=== PATIENT | female | born 1990 | race African-American/Black ===

== ENCOUNTER 2017-04-18 13:45 | Emergency (ER) | payer MEDICAID ==
[~2017-04-18 13:45] MED LIST: ADVIL200 MG ORAL; ATARAX25 MG ORAL; DOXYCYCLINE MO100 MG ORAL; HYDROCORTISO28.35 G1 TOPIC; METRONIDAZOLE500 MG ORAL; NKM; PERMETHRIN60 GM TOPIC
[2017-04-18] MEDS ORDERED: ALBUTEROL SULF8.5 GM INH (14:54)
[2017-04-18] MEDS ORDERED: PROMETHAZINE-C118 M1 ORAL (14:54)
[2017-04-18] MEDS ORDERED: PREDNISONE20 MG ORAL (14:54)
== END 2017-04-18 14:00 | disposition left against medical advice (07) ==
LOC: EMR 14:00
DX: Z53.21 Procedure and treatment not carried out due to patient leaving prior to being seen by health care provider (principal)

== ENCOUNTER 2017-04-18 14:15 | Emergency (ER) | payer MEDICAID ==
[~2017-04-18] VITALS: Ht 162.6 cm; Wt 72.6 kg
[2017-04-18 14:31] VITALS: BP 141/84
[2017-04-18] MEDS ORDERED: PREDNISONE20 MG ORAL (14:54)
[2017-04-18] MEDS ORDERED: PROMETHAZINE-C118 M1 ORAL (14:54)
[2017-04-18] MEDS ORDERED: ALBUTEROL SULF8.5 GM INH (14:54)
[2017-04-18 15:01] VITALS: BP 141/84
--- NOTE | 2017-04-22 08:44 | Emergency Room Report ---
History of Present Illness General Chief Complaint: General Complaint Source: Patient Present Illness HPI 27-year-old female presents to ED for evaluation. Patient is here stating that there is mold in her apartment and she's been having a cough for the last several months. Cough is dry. Denies chest pain or shortness of breath. Denies wheezing. Denies fevers or chills. Denies sick contacts or recent travel. No other aggravating relieving factors. Denies any other associated symptoms Allergies: Coded Allergies: IBUPROFEN (Verified Allergy, Intermediate, 08/29/14) Patient History Past Medical History: asthma, psych hx Past Surgical History: none Pertinent Family History: none Social History: Denies: alcohol use, drug use, smoking Last Menstrual Period: 2 weeks Now: No Immunizations: UTD Reviewed Nursing Documentation: PMH: Agreed, PSxH: Agreed Nursing Documentation-PMH Past Medical History: No History, Except For Hx Asthma: Yes History Of Psychiatric Problem: Yes - depression Hx Neurological Problems: No - Metacarpal surgery in 2013(due to fracture) Review of Systems All Other Systems: negative except mentioned in HPI Physical Exam Vital Signs Date Time Temp Pulse Resp B/P Pulse Ox O2 Delivery O2 Flow Rate FiO2 04/18/17 14:18 97.7 101 20 138/87 98 Room Air Sp02 EP Interpretation: reviewed General Appearance: no apparent distress, alert, GCS 15, non-toxic Head: normocephalic Eyes: bilateral eye PERRL, bilateral eye normal inspection ENT: hearing grossly normal, normal pharynx, no angioedema, normal voice Neck: normal inspection Respiratory: chest non-tender, lungs clear, normal breath sounds, speaking full sentences Cardiovascular #1: regular rate, rhythm, no edema Gastrointestinal: normal bowel sounds, non tender, soft, non-distended, no guarding, no rebound Rectal: deferred Genitourinary: no CVA tenderness Musculoskeletal: back normal Neurologic: alert, oriented x3, responsive, motor strength/tone normal, sensory intact, speech normal Psychiatric: anxious Skin: normal inspection Lymphatic: normal inspection Medical Decision Making Diagnostic Impression: Primary Impression: Bronchitis ER Course Hospital Course 27-year-old female presents to ED complaining of persistent cough. possible mold exposure at house Differential diagnoses include: URI, pharyngitis, otitis media, asthma Clinical course Patient placed on stretcher. After initial history, physical exam reveals a female in no acute distress. Bilateral TM unremarkable. No pharyngeal erythema. No tonsillar exudates. No lymphadenopathy. lungs clear. abdomen soft. I reviewed EMR patient has been here multiple times for vague complaints. Patient does have history of anxiety and some psychiatric component to her visits. On a recent visit patient screamed at the physician stating that "nothing was done". At this time patient remains calm. Understanding her diagnosis. Understands no emergent therapy is required at this time Diagnosis - bronchitis Stable and discharged home with Rx albuterol, cough syrup, prednisone. Instructed to followup with PMD. Return to ED if symptoms recur or worsen Chest X-Ray Diagnostic Results Chest X-Ray Ordered: No Last Vital Signs Date Time Temp Pulse Resp B/P Pulse Ox O2 Delivery O2 Flow Rate FiO2 04/18/17 15:01 97.6 98 19 141/84 99 Room Air Status: improved Disposition: HOME, SELF-CARE Condition: Stable Scripts Albuterol Sulfate* (ALBUTEROL SULFATE MDI*) 8.5 Gm Hfa.aer.ad 2 PUFF INH Q4H Y for cough/wheezing, #1 EA 0 Refills Prov: SCOTT TIRADO M.D. 04/18/17 Prednisone* (PREDNISONE*) 20 Mg Tablet 40 MG ORAL DAILY, #10 TAB Prov: SCOTT TIRADO M.D. 04/18/17 Codeine/Promethazine Hcl* (PROMETHAZINE-CODEINE SYRUP*) 118 Ml Syrup 5 ML ORAL Q6H Y for For Cough, #118 ML 0 Refills Prov: SCOTT TIRADO M.D. 04/18/17 Referrals: [facility],REFERRING (PCP) Patient Instructions: Acute Bronchitis, [id number] SCOTT TIRADO M.D. Apr 22, 2017 08:44
== END 2017-04-18 15:01 | disposition home or self-care (01) ==
LOC: EMR 14:48
DX: J45.909 Unspecified asthma, uncomplicated (principal); F32.9 Major depressive disorder, single episode, unspecified; Z88.6 Allergy status to analgesic agent
CPT/HCPCS: 99284

== ENCOUNTER 2017-05-27 04:53 | Emergency (ER) | payer MEDICAID ==
[~2017-05-27] VITALS: Ht 162.6 cm; Wt 72.6 kg
[~2017-05-27 04:53] MED LIST changes: +ALBUTEROL SULF8.5 GM INH; +PREDNISONE20 MG ORAL; +PROMETHAZINE-C118 M1 ORAL
[2017-05-27] MEDS ORDERED: NKM (05:07)
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
[2017-05-27] MEDS ORDERED: OMEPRAZOLE10 M1 ORAL (06:07)
[2017-05-27] MEDS ORDERED: TRAMADOL HCL50 MG ORAL (06:07)
[2017-05-27 06:08] VITALS: BP 128/74
[2017-05-27 06:11] VITALS: BP 128/74
[2017-05-27 07:40] VITALS: BP 128/74
--- NOTE | 2017-05-27 10:16 | Diagnostic Imaging Report ---
Indication: Dyspnea Technique: XRAY CHEST 1 V Comparison: None Findings: The cardiomediastinal silhouette is within normal limits. There is no focal consolidation, pneumothorax or pleural effusion. Osseous structures demonstrate no acute abnormality. Impression: No acute cardiopulmonary disease.
== END 2017-05-27 07:40 | disposition home or self-care (01) ==
LOC: EMR 05:20
DX: F15.10 Other stimulant abuse, uncomplicated (principal); L30.9 Dermatitis, unspecified; R05 Cough; J45.909 Unspecified asthma, uncomplicated; Z88.6 Allergy status to analgesic agent
CPT/HCPCS: 71010; 80300; 99283

== ENCOUNTER 2017-09-28 20:52 | Emergency (ER) | payer MEDICAID ==
[~2017-09-28] VITALS: Ht 165.1 cm; Wt 77.1 kg
[~2017-09-28 20:52] MED LIST changes: +OMEPRAZOLE10 M1 ORAL; +TRAMADOL HCL50 MG ORAL
[2017-09-28 21:00] VITALS: BP 123/76
[2017-09-28] MEDS ORDERED: NKM (21:10)
[2017-09-28] MEDS ORDERED: Acetaminophen 500mg (ES) tab ORAL ONE (21:30)
[2017-09-28] MEDS ORDERED: ACETAMINOPHEN500 M3 ORAL (21:30)
--- NOTE | 2017-09-28 21:31 | Emergency Room Report ---
History of Present Illness General Chief Complaint: Headache Source: Patient Present Illness HPI Is a 27-year-old female with no significant past medical history. She presents complaining of headache and jaw pain. Onset for the last week. She said it is some swelling to the mouth. Worse when she open her mouth. Pain radiates to her head. No nausea no vomiting. No fever or chills. Pain is 8/10. Has not anything for this. Allergies: Coded Allergies: IBUPROFEN (Verified Allergy, Unknown, 09/28/17) Patient History Past Medical History: see triage record, old chart reviewed Past Surgical History: other Pertinent Family History: none Social History: Denies: smoking Immunizations: other Reviewed Nursing Documentation: PMH: Agreed, PSxH: Agreed Nursing Documentation-PMH Hx Asthma: Yes Hx Neurological Problems: Yes - BRAIN SWELLING Review of Systems Eye: Denies: eye pain, blurred vision ENT: Denies: ear pain, nose congestion, throat swelling Respiratory: Denies: cough, shortness of breath Cardiovascular: Denies: chest pain, palpitations Gastrointestinal: Denies: abdominal pain, diarrhea, nausea, vomiting Musculoskeletal: Denies: back pain, joint pain Skin: Denies: rash Neurological: Reports: headache, Denies: numbness Endocrine: Denies: increased thirst, increased urine Hematologic/Lymphatic: Denies: easy bruising All Other Systems: negative except mentioned in HPI Physical Exam Vital Signs Date Time Temp Pulse Resp B/P (MAP) Pulse Ox O2 Delivery O2 Flow Rate FiO2 09/28/17 21:00 98.0 100 16 123/76 100 Room Air vitals normal Sp02 EP Interpretation: reviewed, normal General Appearance: well appearing, no apparent distress, alert Head: normocephalic, atraumatic, other - She has 5 rome to the left parietal scalp. Eyes: bilateral eye PERRL, bilateral eye EOMI ENT: hearing grossly normal, normal pharynx, other - No dental abscess. No trismus. Neck: full range of motion, supple, no meningismus Respiratory: chest non-tender, lungs clear, normal breath sounds Cardiovascular #1: regular rate, rhythm, no murmur Gastrointestinal: normal bowel sounds, non tender, no mass, no organomegaly, no bruit, non-distended Musculoskeletal: back normal, gait/station normal, normal range of motion Psychiatric: mood/affect normal Skin: warm/dry Procedures Additional Procedure Procedure Narrative Procedure: Staple removal Indication: Overdue for removal Description: Using a state removal I remove all 5 rome without any difficulty. She tolerated procedure without a problem. No complication. Medical Decision Making Diagnostic Impression: Primary Impression: Headache Qualified Codes: G44.209 - Tension-type headache, unspecified, not intractable Additional Impressions: Encounter for staple removal Pain in upper jaw ER Course Patient with headache and jaw pain. Could be TMJ syndrome. Could be dental infection. No evidence of abscess noted. No evidence of anginal referral pain. Stable minute her scalp 3 weeks now. No evidence of infection. We'll discharge home. Last Vital Signs Date Time Temp Pulse Resp B/P (MAP) Pulse Ox O2 Delivery O2 Flow Rate FiO2 09/28/17 21:02 98.1 100 16 123/76 100 Room Air Status: improved Disposition: HOME, SELF-CARE Condition: Stable Scripts Acetaminophen* (ACETAMINOPHEN EXTRA STRENGTH*) 500 Mg Tablet 500 MG ORAL Q8H Y for Fever/Headache/Mild Pain, #30 TAB Prov: BELINDA RODRIGUEZ M.D. 09/28/17 Patient Instructions: Tension Headache Additional Instructions: Followup with your DrDari in 7 days. You may benefit from seen a dentist. Return if worse. BELINDA RODRIGUEZ M.D. Sep 28, 2017 21:31
[2017-09-28 21:45] VITALS: BP 123/76
[2017-09-28] MEDS ORDERED: AMOXICILLIN500 MG ORAL (21:45)
== END 2017-09-28 21:50 | disposition home or self-care (01) ==
LOC: EDUNIT# 20:52 → EMR 21:49
DX: R51 Headache (principal); R68.84 Jaw pain; J45.909 Unspecified asthma, uncomplicated; Z88.6 Allergy status to analgesic agent
CPT/HCPCS: 99283

== ENCOUNTER 2017-10-09 03:19 | Emergency (ER) | payer MEDICAID ==
[~2017-10-09] VITALS: Ht 162.6 cm; Wt 77.1 kg
[~2017-10-09 03:19] MED LIST changes: +ACETAMINOPHEN500 M3 ORAL; +AMOXICILLIN500 MG ORAL
[2017-10-09 03:30] VITALS: BP 137/88
[2017-10-09] MEDS ORDERED: TRAMADOL HCL50 MG ORAL (04:27)
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
[2017-10-09] MEDS ORDERED: Norco 5mg/325mg tab ORAL ONE (04:30)
[2017-10-09 04:40] VITALS: BP 137/88
== END 2017-10-09 04:40 | disposition home or self-care (01) ==
LOC: EMR 03:51 → MERGE 03:51 → EMR 04:40
DX: R68.84 Jaw pain (principal); J45.909 Unspecified asthma, uncomplicated; Z88.6 Allergy status to analgesic agent
CPT/HCPCS: 99283